=== PATIENT | male | born 1945 | race Caucasian/White ===

== ENCOUNTER 2016-12-01 17:13 | Emergency (ER) | payer MEDICARE ==
[2016-12-01 17:13] VITALS: BMI 21.4
[2016-12-01 17:17] VITALS: BP 126/57; PULSE 80; TEMP 98.3; O2SAT 98
[2016-12-01] MEDS ORDERED: Albuterol-Ipratrop 3 mg / 0.5 (3 ml) UD IH STA ×2 (17:34→17:35)
[2016-12-01] MEDS ORDERED: Albuterol-Ipratrop 3 mg / 0.5 (3 ml) UD INH STA (17:34)
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
[2016-12-01] MEDS ORDERED: Albuterol-Ipratrop 3 mg / 0.5 (3 ml) UD ONE (17:42)
[2016-12-01 18:11] VITALS: RESP 18
[2016-12-01 18:13] LABS: BASO % 0.8 % (0.0-2.0); EOS # 0.2 K/uL (0.0-0.7); EOS % 5.4 % (0.0-4.0); HEMOGLOBIN 12.6 g/dL (12.0-18.0); LYMPH # 1.6 K/uL (1.0-4.3); LYMPH % 35.6 % (20.0-40.0); MEAN CORPUSCULAR HEMOGLOBIN 30.2 pg (27.0-31.0); MEAN CORPUSCULAR HGB CONC 33.2 g/dL (33.0-37.0); MEAN PLATELET VOLUME 8.4 fl (7.2-11.7); MONO # 0.5 K/uL (0.0-0.8); MONO % 12.1 % (0.0-10.0); NEUT # 2.1 K/uL (1.8-7.0); NEUT % 46.1 % (50.0-75.0); RBC 4.18 Mil/uL (4.40-5.90); RED CELL DISTRIBUTION WIDTH 13.7 % (11.5-14.5); WHITE BLOOD COUNT 4.6 K/uL (4.8-10.8)
[2016-12-01 18:19] LABS: MEAN CELL VOLUME 90.9 fl (80.0-94.0)
[2016-12-01 18:27] LABS: ALB/GLOB RATIO 1.2 (1.0-2.1); ALBUMIN 3.9 g/dL (3.5-5.0); ALT/SGPT 47 U/L (21-72); AST/SGOT 33 U/L (17-59); BLOOD UREA NITROGEN 27 mg/dl (9-20); CALCIUM 8.9 mg/dL (8.4-10.2); GFR AFRICAN-AMERICAN 56; GFR NON-AFRICAN AMERICAN 46
[2016-12-01 18:39] LABS: B-TYPE NATRIURETIC PEPTIDE 146 pg/ml (0-900)
--- NOTE | 2016-12-01 20:13 | RAD ---
HISTORY: dyspnea COMPARISON: No prior. FINDINGS: LUNGS: No active pulmonary disease. PLEURA: No significant pleural effusion identified, no pneumothorax apparent. CARDIOVASCULAR: Normal. OSSEOUS STRUCTURES: No significant abnormalities. VISUALIZED UPPER ABDOMEN: Normal. OTHER FINDINGS: None. IMPRESSION: No active disease.
--- NOTE | 2016-12-02 09:44 | CARD ---
APPROVED REPORT EKG Measurement Heart [id number] CT 132P86 [id number] <Conclusion> Sinus rhythm with marked sinus arrhythmia Left axis deviation Right bundle branch block
== END 2016-12-01 20:23 | disposition home or self-care (01) ==
LOC: H.ER 17:13
DX: J45.909 Unspecified asthma, uncomplicated (principal)
CPT/HCPCS: 71010; 80053; 83880; 84484; 85025; 93005; 94640; 96374; 99284; J2930; J7040

== ENCOUNTER 2016-12-09 09:21 | Observation (INO) | payer MEDICARE ==
[2016-12-09 09:33] VITALS: BMI 20.7
[2016-12-09 09:48] VITALS: TEMP 97.9
[2016-12-09 10:08] LABS: BASO % 0.8 % (0.0-2.0); EOS # 0.3 K/uL (0.0-0.7); EOS % 6.5 % (0.0-4.0); HEMATOCRIT 35.9 % (35.0-51.0); LYMPH # 0.9 K/uL (1.0-4.3); LYMPH % 17.4 % (20.0-40.0); MEAN CELL VOLUME 90.8 fl (80.0-94.0); MEAN CORPUSCULAR HGB CONC 33.1 g/dL (33.0-37.0); MEAN PLATELET VOLUME 8.7 fl (7.2-11.7); MONO # 0.6 K/uL (0.0-0.8); MONO % 12.2 % (0.0-10.0); NEUT # 3.3 K/uL (1.8-7.0); NEUT % 63.1 % (50.0-75.0); RED CELL DISTRIBUTION WIDTH 13.9 % (11.5-14.5); WHITE BLOOD COUNT 5.2 K/uL (4.8-10.8)
[2016-12-09 10:13] LABS: ALB/GLOB RATIO 1.2 (1.0-2.1); ALCOHOL SERUM < 10 mg/dl (0-10); ALKALINE PHOSPHATASE 39 U/L (38-126); ALT/SGPT 38 U/L (21-72); AST/SGOT 26 U/L (17-59); BILIRUBIN,TOTAL 0.6 mg/dl (0.2-1.3); BLOOD UREA NITROGEN 22 mg/dl (9-20); CALCIUM 8.7 mg/dL (8.4-10.2); CARBON DIOXIDE 26 mmol/L (22-30); CHLORIDE 108 mmol/L (98-107); GFR AFRICAN-AMERICAN > 60; GLUCOSE,RANDOM 103 mg/dL (75-110); POTASSIUM 4.1 MMOL/L (3.6-5.0); SODIUM 141 mmol/l (132-148); TOTAL PROTEIN 6.9 G/DL (6.3-8.2)
--- NOTE | 2016-12-09 10:28 | ED PDOC ---
HPI: General Adult Time Seen by Provider: 12/09/16 09:29 Chief Complaint (Nursing): Dizziness/Lightheaded Chief Complaint (Provider): weakness History Per: Patient, EMS History/Exam Limitations: clinical condition, intoxication Onset/Duration Of Symptoms: Unknown Current Symptoms Are (Timing): Still Present Severity: Moderate Recently: Treated By A Physician Additional Complaint(s): 71yo male presents w EMS, found leaning against a fence weak/ somnolent. In ED admits to "snorting" heroin. Somnolent but arousable, history limited due to somnolence. No reports trauma. Patient denies headache or fall. Past Medical History Reviewed: Historical Data, Nursing Documentation, Vital Signs Vital Signs: Last Vital Signs Temp 97.9 F 12/09/16 09:43 Pulse 60 12/09/16 17:30 Resp 16 12/09/16 17:30 BP 147/80 12/09/16 17:30 Pulse Ox 100 12/09/16 17:30 - Medical History PMH: Anemia, Asthma, COPD, Emphysema, HIV, Pneumonia, Sexually Transmitted Disease Denies: Chronic Kidney Disease - Family History Family History: States: Unknown Family Hx - Living Arrangements Living Arrangements: With Family - Social History Current smoker - smoking cessation education provided: Yes Drugs: Opiates - Home Medications Home Medications: Ambulatory Orders Medication Instructions Recorded Abacavir Sulfate/Lamivudine 1 tab PO QPM 06/16/15 [Epzicom] Albuterol Sulfate [Proair Hfa] 2 puff IH Q6H PRN 06/16/15 Budesonide/Formoterol Fumarate 2 puff IH Q12H 06/16/15 [Symbicort 160-4.5 Mcg Inhaler] Raltegravir Potassium [Isentress] 400 mg PO BID 06/16/15 Aspirin 325 mg PO 1500 #0 tab 11/10/15 Atenolol 25 mg PO DAILY #30 tablet 11/10/15 Pravastatin Sodium [Pravachol] 40 mg PO 1500 #0 tab 11/10/15 Albuterol Sulfate [Proair Hfa] 0.09 mg IH Q6H PRN #2 inh 12/01/16 predniSONE [predniSONE Tab] 20 mg PO BID 5 Days 12/01/16 - Allergies Allergies/Adverse Reactions: Allergies Allergy/AdvReac Type Severity Reaction Status Date / Time No Known Allergies Allergy Verified 12/09/16 09:29 Review of Systems Review Of Systems: ROS cannot be obtained secondary to pt's inabilty to answer questions. Physical Exam - Reviewed Nursing Documentation Reviewed: Yes Vital Signs Reviewed: Yes - Physical Exam Appears: Positive for: Non-toxic, No Acute Distress Head Exam: Positive for: ATRAUMATIC, NORMAL INSPECTION, NORMOCEPHALIC Skin: Positive for: Normal Color, Warm, DRY Eye Exam: Positive for: PERRL, Other (pupils 1mm b/l). Negative for: Periorbital swelling ENT: Positive for: Normal ENT Inspection Neck: Positive for: Normal, Painless ROM Cardiovascular/Chest: Positive for: Regular Rate, Rhythm Respiratory: Positive for: Normal Breath Sounds, Other (normal resp effort) Pulses-Radial (L): 3+/4+ Pulses-Radial (R): 3+/4+ Gastrointestinal/Abdominal: Positive for: Bowel Sounds, Soft. Negative for: Tenderness Back: Positive for: Normal Inspection Extremity: Positive for: Normal ROM Neurologic/Psych: Positive for: Alert, integrity analyst II-XII (intact), Oriented. Negative for: Motor/Sensory Deficits - Laboratory Results Result Diagrams: 12/09/16 09:55 12/09/16 09:55 - ECG ECG: Positive for: Interpreted By Ut ECG Rhythm: Positive for: Normal ST Segment, Sinus Rhythm, Nonspecific Changes Interpretation Of ECG: RBBB Rate: 85 O2 Sat by Pulse Oximetry: 92 Pulse Ox Interpretation: Normal - Radiology X-Ray: Interpreted by Ut X-Ray Interpretation: No Acute Disease Medical Decision Making Medical Decision Making: placed on teletypesetter monitor, maintaining resp drive, hold narcan for now. ED OBSERVATION Date of observation admission: 12/09/16 Time of observation admission: 11:30 - Observation admission statement Patient is being placed in observation because:: heroin overdose and need for respiratory monitoring - Goals of Observation Goals of observation are:: wakefullness, respiratory stability - Progress Note Progress Note: patient placed on cardiac and SPO2 monitoring, gradually regained wakefullness without need for narcan as maintained respiratory drive. After ~5hrs monitoring, awake, alert, tolerated full PO diet. Ambulating. States uses heroin daily. Refused detox offering. DC from ED. Disposition - Clinical Impression Clinical Impression: Heroin abuse, Opiate overdose - Patient ED Disposition Is Patient to be Admitted: No - Disposition Disposition: Routine/Home Disposition Time: 11:30 Condition: STABLE
--- NOTE | 2016-12-09 16:04 | RAD ---
HISTORY: SOB COMPARISON: Comparison chest dated 12/01/2016 FINDINGS: LUNGS: Poor inspiration with low lung volumes, crowded bronchovascular markings and mild bibasilar atelectasis right greater than left. PLEURA: No significant pleural effusion identified, no pneumothorax apparent. CARDIOVASCULAR: Heart size is within range of normal. . Calcification of the aortic knob. The aorta is also slightly ectatic and uncoiled. OSSEOUS STRUCTURES: Minor degenerative changes left shoulder girdle. Minor multilevel degenerative spondylosis of the thoracic spine VISUALIZED UPPER ABDOMEN: Normal. OTHER FINDINGS: None. IMPRESSION: Poor inspiration with low lung volumes, crowded bronchovascular markings and mild bibasilar atelectasis right greater than left.
[2016-12-09 17:30] VITALS: BP 147/80; RESP 16
[2016-12-12 12:08] VITALS: PULSE 85; O2SAT 92
== END 2016-12-09 19:24 | disposition home or self-care (01) ==
LOC: H.ER 09:21 → H.EROBSV 11:33
PROVIDERS: ADMIT Emergency Medicine; ATTEND Emergency Medicine
DX: F11.129 Opioid abuse with intoxication, unspecified (principal); F17.200 Nicotine dependence, unspecified, uncomplicated; J43.9 Emphysema, unspecified; J45.909 Unspecified asthma, uncomplicated; Z21 Asymptomatic human immunodeficiency virus [HIV] infection status
CPT/HCPCS: 71010; 80053; 82948; 84484; 85025; 99283; G0378; G0480

== ENCOUNTER 2017-05-09 20:36 | Inpatient (IN) | payer MEDICARE ==
[2017-05-09 20:36] VITALS: BMI 20.7
--- NOTE | 2017-05-09 21:25 | ED PDOC ---
HPI: CCC, URI, Sore Throat Time Seen by Provider: 05/09/17 21:02 Chief Complaint (Nursing): Shortness Of Breath Chief Complaint (Provider): cough History Per: Patient History/Exam Limitations: intoxication (possible heroin) Onset/Duration Of Symptoms: Days (2 weeks) Associated Symptoms: Chills, Cough, Sputum, Sinus Drainage, Myalgias Additional Complaint(s): Reports cough for 2 weeks, on antibiotics at onset, with no relief Today with weakness generalized and shortness of breath H/o HIV off antivirals for 2 months due to loss of meds from [facility] in [facility] Past Medical History Reviewed: Historical Data, Nursing Documentation, Vital Signs Vital Signs: Last Vital Signs Temp 99.3 F 05/09/17 20:55 Pulse 83 05/09/17 20:55 Resp 20 05/09/17 20:55 BP 163/87 H 05/09/17 20:55 Pulse Ox 98 05/09/17 20:55 - Medical History PMH: Anemia, Asthma, COPD, Emphysema, HIV, Pneumonia, Sexually Transmitted Disease Denies: Chronic Kidney Disease - Family History Family History: States: Unknown Family Hx - Social History Current smoker - smoking cessation education provided: No Alcohol: None Drugs: Opiates - Home Medications Home Medications: Ambulatory Orders Medication Instructions Recorded Abacavir Sulfate/Lamivudine 1 tab PO QPM 06/16/15 [Epzicom] Albuterol Sulfate [Proair Hfa] 2 puff IH Q6H PRN 06/16/15 Budesonide/Formoterol Fumarate 2 puff IH Q12H 06/16/15 [Symbicort 160-4.5 Mcg Inhaler] Raltegravir Potassium [Isentress] 400 mg PO BID 06/16/15 Aspirin 325 mg PO 1500 #0 tab 11/10/15 Atenolol 25 mg PO DAILY #30 tablet 11/10/15 Pravastatin Sodium [Pravachol] 40 mg PO 1500 #0 tab 11/10/15 Albuterol Sulfate [Proair Hfa] 0.09 mg IH Q6H PRN #2 inh 12/01/16 predniSONE [predniSONE Tab] 20 mg PO BID 5 Days tab 12/01/16 - Allergies Allergies/Adverse Reactions: Allergies Allergy/AdvReac Type Severity Reaction Status Date / Time No Known Allergies Allergy Verified 12/09/16 09:29 Review of Systems ROS Statement: Except As Marked, All Systems Reviewed And Found Negative (and as per HPI, however pt lethargic possibly due to heroin) Constitutional: Positive for: Weakness, Malaise. Negative for: Fever, Chills ENT: Positive for: Nose Discharge Cardiovascular: Positive for: Light Headedness Respiratory: Positive for: Cough, Shortness of Breath, SOB with Exertion, Pleuritic Pain Physical Exam - Reviewed Nursing Documentation Reviewed: Yes Vital Signs Reviewed: Yes - Physical Exam Appears: Positive for: No Acute Distress Head Exam: Positive for: ATRAUMATIC, NORMOCEPHALIC Skin: Positive for: Warm, Dry Eye Exam: Positive for: PERRL, Other (small pupils bilaterally) ENT: Negative for: Pharyngeal Erythema, Tonsillar Exudate Neck: Positive for: Painless ROM, Supple Cardiovascular/Chest: Positive for: Regular Rate, Rhythm, Chest Non Tender. Negative for: Murmur Respiratory: Positive for: Rhonchi. Negative for: Accessory Muscle Use, Respiratory Distress Gastrointestinal/Abdominal: Positive for: Soft. Negative for: Tenderness Back: Positive for: Normal Inspection. Negative for: Decreased ROM Extremity: Positive for: Normal ROM. Negative for: Deformity Lymphatic: Negative for: Adenopathy Neurologic/Psych: Positive for: Oriented (x3), Other (sleepy, slightly garbled speech). Negative for: Motor/Sensory Deficits - ECG O2 Sat by Pulse Oximetry: 98 Disposition - Disposition
[2017-05-09 21:43] LABS: VENOUS BLOOD GAS BASE EXCESS 5.3 mmol/L (0.0-2.0); VENOUS BLOOD GAS PCO2 69 mmHg (40-60); VENOUS BLOOD GAS PO2 16 mm/Hg (30-55)
[2017-05-09 21:52] LABS: ALB/GLOB RATIO 1.1 (1.0-2.1); ALBUMIN 3.9 g/dL (3.5-5.0); ALT/SGPT 39 U/L (21-72); AST/SGOT 32 U/L (17-59); BLOOD UREA NITROGEN 23 mg/dl (9-20); GFR AFRICAN-AMERICAN > 60; GFR NON-AFRICAN AMERICAN > 60; MAGNESIUM 1.8 MG/DL (1.6-2.3)
[2017-05-09 21:55] LABS: CALCIUM 8.7 mg/dL (8.4-10.2)
[2017-05-09 22:00] LABS: B-TYPE NATRIURETIC PEPTIDE 111 pg/ml (0-900)
[2017-05-09 22:02] LABS: BASO % 0.3 % (0.0-2.0); EOS % 0.2 % (0.0-4.0); HEMOGLOBIN 12.5 g/dL (12.0-18.0); LYMPH # 0.9 K/uL (1.0-4.3); LYMPH % 14.1 % (20.0-40.0); MEAN CELL VOLUME 96.4 fl (80.0-94.0); MEAN CORPUSCULAR HEMOGLOBIN 31.4 pg (27.0-31.0); MEAN CORPUSCULAR HGB CONC 32.5 g/dL (33.0-37.0); MEAN PLATELET VOLUME 8.6 fl (7.2-11.7); MONO # 0.4 K/uL (0.0-0.8); MONO % 6.8 % (0.0-10.0); NEUT # 4.8 K/uL (1.8-7.0); NEUT % 78.6 % (50.0-75.0); RBC 3.99 Mil/uL (4.40-5.90); RED CELL DISTRIBUTION WIDTH 14.3 % (11.5-14.5); WHITE BLOOD COUNT 6.1 K/uL (4.8-10.8)
[2017-05-09 22:25] LABS: PARTIAL THROMBOPLASTIN TIME 29.7 Seconds (25.6-37.1); PROTHROMBIN TIME 11.1 Seconds (9.8-13.1)
[2017-05-09] MEDS ORDERED: Albuterol-Ipratrop 3 mg / 0.5 (3 ml) UD INH STA (23:25)
[2017-05-10] MEDS ORDERED: Albuterol-Ipratrop 3 mg / 0.5 (3 ml) UD ONE ×2 (00:35→01:55)
[2017-05-10 01:15] LABS: BARBITURATES, UR NEGATIVE (NEGATIVE); BENZODIAZEPINES, UR NEGATIVE (NEGATIVE); PHENCYCLIDINE, UR NEGATIVE (NEGATIVE)
[2017-05-10 01:23] LABS: OPIATES, UR POSITIVE (NEGATIVE)
[2017-05-10] MEDS ORDERED: Pneumococcal 23-Valent Vaccine IM ONE (06:39)
[2017-05-10] MEDS: MethylPREDNISolone 40 mg Vial IVP SCH ×2 (09:02→16:52)
[2017-05-10] MEDS: levoFLOXacin 500 mg in D5W 500 MG/100 ML BAG IVPB SCH (09:04)
--- NOTE | 2017-05-10 11:39 | RAD ---
HISTORY: sob COMPARISON: Chest radiograph dated 12/09/2016. FINDINGS: LUNGS: Hyperinflated. Right basilar scarring. No active pulmonary disease. PLEURA: Flattened diaphragms. No significant pleural effusion identified, no pneumothorax apparent. CARDIOVASCULAR: Atherosclerotic aortic calcifications. Cardiomediastinal silhouette within normal limits. OSSEOUS STRUCTURES: Unchanged. VISUALIZED UPPER ABDOMEN: Normal. OTHER FINDINGS: None. IMPRESSION: No active disease.
[2017-05-10] MEDS: Albuterol-Ipratrop 3 mg / 0.5 (3 ml) UD INH PRN ×2 (17:03→19:14)
--- NOTE | 2017-05-10 17:57 | CARD ---
APPROVED REPORT EKG Measurement Heart [id number] NC 118P86 [id number] <Conclusion> Normal sinus rhythm Right bundle branch block Left anterior fascicular block Bifascicular block Abnormal ECG
--- NOTE | 2017-05-10 19:03 | CP.PCM.HP ---
History of Present Illness - History of Present Illness History of Present Illness: CC; Shortness of Breath. History of {Present Illness: A 71yoM with H/O CAD, COPD and HIV presented with Progressively worsening SOB which was not relieved Inhalers and Duonebs in the ER. +Dry cough. Denies chest pain, fever chills. PAtient was also given solumedrol 125mg IV in the ER. Present on Admission - Present on Admission Any Indicators Present on Admission: No History of DVT/PE: No History of Uncontrolled Diabetes: No Urinary Catheter: No Decubitus Ulcer Present: No Review of Systems - Review of Systems All systems: reviewed and no additional remarkable complaints except - Respiratory Respiratory: As Per HPI Past Patient History - Infectious Disease Hx of Infectious Diseases: None - Past Medical History & Family History Past Medical History?: Yes Past Family History: Reviewed and not pertinent - Past Social History Smoking Status: Never Smoked Alcohol: None Drugs: Denies - CARDIAC Hx Cardiac Disorders: Yes (HTN, High cholesterol) - PULMONARY Hx Respiratory Disorders: Yes (COPD, Asthma) - NEUROLOGICAL Hx Neurological Disorder: No - HEENT Hx HEENT Problems: No - RENAL Hx Chronic Kidney Disease: No - ENDOCRINE/METABOLIC Hx Endocrine Disorders: No - HEMATOLOGICAL/ONCOLOGICAL Hx Human Immunodeficiency Virus (HIV): Yes - INTEGUMENTARY Hx Dermatological Problems: No - MUSCULOSKELETAL/RHEUMATOLOGICAL Hx Falls: No - GASTROINTESTINAL Hx Gastrointestinal Disorders: No - GENITOURINARY/GYNECOLOGICAL Hx Genitourinary Disorders: No - PSYCHIATRIC Hx Substance Use: Yes (Admits to heroin use, last 05/09/17) - SURGICAL HISTORY Hx Surgeries: No - ANESTHESIA Hx Anesthesia: No Meds Allergies/Adverse Reactions: Allergies Allergy/AdvReac Type Severity Reaction Status Date / Time No Known Allergies Allergy Verified 12/09/16 09:29 Physical Exam - Constitutional Appears: Non-toxic, No Acute Distress - Head Exam Head Exam: ATRAUMATIC, NORMAL INSPECTION, NORMOCEPHALIC - Eye Exam Eye Exam: EOMI, Normal appearance, PERRL Pupil Exam: NORMAL ACCOMODATION, PERRL - ENT Exam ENT Exam: Mucous Membranes Moist, Normal Exam - Neck Exam Neck exam: Positive for: Full Rom, Normal Inspection - Respiratory Exam Respiratory Exam: Decreased Breath Sounds, Prolonged Expiratory Phase, Wheezes. absent: Rales - Cardiovascular Exam Cardiovascular Exam: REGULAR RHYTHM, +S1, +S2 - GI/Abdominal Exam GI & Abdominal Exam: Normal Bowel Sounds, Soft. absent: Tenderness - Extremities Exam Extremities exam: Positive for: full ROM, normal inspection. Negative for: calf tenderness - Back Exam Back exam: NORMAL INSPECTION - Neurological Exam Neurological exam: Alert, CN II-XII Intact, Normal Gait, Oriented x3, Reflexes Normal - Psychiatric Exam Psychiatric exam: Normal Affect, Normal Mood - Skin Skin Exam: Dry, Intact, Normal Color, Warm Results - Vital Signs Recent Vital Signs: Last Vital Signs Temp 98.6 F 05/10/17 16:05 Pulse 75 05/10/17 16:05 Resp 20 05/10/17 16:05 BP 109/51 L 05/10/17 16:05 Pulse Ox 97 05/10/17 16:05 - Labs Result Diagrams: 05/09/17 21:25 05/09/17 21:25 Labs: Laboratory Results - last 24 hr 05/09/17 05/09/17 05/09/17 21:25 21:25 21:25 WBC 6.1 RBC 3.99 L Hgb 12.5 Hct 38.5 MCV 96.4 H D MCH 31.4 H MCHC 32.5 L RDW 14.3 Plt Count 212 MPV 8.6 Neut % (Auto) 78.6 H Lymph % (Auto) 14.1 L Sully % (Auto) 6.8 Eos % (Auto) 0.2 Baso % (Auto) 0.3 Neut # 4.8 Lymph # 0.9 L Sully # 0.4 Eos # 0.0 Baso # 0.0 PT INR APTT pO2 VBG pH VBG pCO2 VBG HCO3 VBG Total CO2 VBG O2 Sat (Calc) VBG Base Excess VBG Potassium Glucose Lactate FiO2 Crit Value Called To Crit Value Called By Crit Value Read Back Blood Gas Notified Time Sodium 138 Potassium 3.8 Chloride 96 L Carbon Dioxide 32 H Anion Gap 14 BUN 23 H Creatinine 1.1 Est GFR ( Amer) > 60 Est GFR (Non-Af Amer) > 60 Random Glucose 74 L Calcium 8.7 Phosphorus 3.3 Magnesium 1.8 Total Bilirubin 0.7 AST 32 ALT 39 Alkaline Phosphatase 42 Troponin I 0.0420 NT-Pro-B Natriuret Pep 111 Total Protein 7.5 Albumin 3.9 Globulin 3.6 Albumin/Globulin Ratio 1.1 Venous Blood Potassium Urine Opiates Screen Urine Methadone Screen Ur Barbiturates Screen Ur Phencyclidine Scrn Ur Amphetamines Screen U Benzodiazepines Scrn U Oth Cocaine Metabols U Cannabinoids Screen Alcohol, Quantitative < 10 Influenza Typ A,B (EIA) Negative for flu a/b 05/09/17 05/09/17 05/10/17 21:35 22:10 00:16 WBC RBC Hgb Hct MCV MCH MCHC RDW Plt Count MPV Neut % (Auto) Lymph % (Auto) Sully % (Auto) Eos % (Auto) Baso % (Auto) Neut # Lymph # Sully # Eos # Baso # PT 11.1 INR 1.0 APTT 29.7 pO2 16 L VBG pH 7.30 L VBG pCO2 69 H* VBG HCO3 26.9 VBG Total CO2 36.1 H VBG O2 Sat (Calc) 24.8 L VBG Base Excess 5.3 H VBG Potassium 3.9 Glucose 70 L Lactate 1.5 FiO2 21.0 Crit Value Called To Marlee mccurdy Crit Value Called By 23 Crit Value Read Back Y Blood Gas Notified Time 2140 Sodium 138.0 Potassium Chloride 96.0 L Carbon Dioxide Anion Gap BUN Creatinine Est GFR ( Amer) Est GFR (Non-Af Amer) Random Glucose Calcium Phosphorus Magnesium Total Bilirubin AST ALT Alkaline Phosphatase Troponin I NT-Pro-B Natriuret Pep Total Protein Albumin Globulin Albumin/Globulin Ratio Venous Blood Potassium 3.9 Urine Opiates Screen Positive H Urine Methadone Screen Negative Ur Barbiturates Screen Negative Ur Phencyclidine Scrn Negative Ur Amphetamines Screen Negative U Benzodiazepines Scrn Negative U Oth Cocaine Metabols Negative U Cannabinoids Screen Negative Alcohol, Quantitative Influenza Typ A,B (EIA) - EKG Data EKG comments: Bifascicular Block with RBBB. - Imaging and Cardiology Chest x-ray Status: Report reviewed by me Additional comment: No Active Disease Assessment & Plan (1) COPD exacerbation Assessment and Plan: O2 Via NC Solumedrol 40mg IV q8hrs Duoneb Q4hrs RTC Peakflow Status: Chronic Priority: High (2) CAD (coronary atherosclerotic disease) Status: Acute Priority: Medium (3) Human immunodeficiency virus (HIV) disease Status: Chronic Priority: Medium
[2017-05-11] MEDS: MethylPREDNISolone 40 mg Vial IVP SCH ×2 (00:49→09:03)
[2017-05-11 07:55] VITALS: BP 162/86; PULSE 82; RESP 20; TEMP 98.7; O2SAT 96
[2017-05-11] MEDS: levoFLOXacin 500 mg in D5W 500 MG/100 ML BAG IVPB SCH (09:03)
--- NOTE | 2017-05-12 00:25 | CP.PCM.DIS ---
Provider - Provider Date of Admission: 05/10/17 11:49 Attending physician: Orly Eller MD Time Spent in preparation of Discharge (in minutes): 25 Diagnosis - Discharge Diagnosis (1) CAD (coronary atherosclerotic disease) Status: Acute Priority: Medium (2) COPD exacerbation Status: Chronic Priority: Low (3) Human immunodeficiency virus (HIV) disease Status: Chronic Priority: Medium Hospital Course - Lab Results Lab Results: Micro Results 05/09/17 21:25 Blood Blood Culture - Preliminary NO GROWTH AFTER 48 HOURS 05/09/17 21:25 Blood Blood Culture - Preliminary NO GROWTH AFTER 48 HOURS Most Recent Lab Values WBC 6.1 K/uL (4.8-10.8) 05/09/17 21:25 RBC 3.99 Mil/uL (4.40-5.90) L 05/09/17 21:25 Hgb 12.5 g/dL (12.0-18.0) 05/09/17 21:25 Hct 38.5 % (35.0-51.0) 05/09/17 21:25 MCV 96.4 fl (80.0-94.0) H D 05/09/17 21:25 MCH 31.4 pg (27.0-31.0) H 05/09/17 21:25 MCHC 32.5 g/dL (33.0-37.0) L 05/09/17 21:25 RDW 14.3 % (11.5-14.5) 05/09/17 21:25 Plt Count 212 K/uL (130-400) 05/09/17 21:25 MPV 8.6 fl (7.2-11.7) 05/09/17 21:25 Neut % (Auto) 78.6 % (50.0-75.0) H 05/09/17 21:25 Lymph % (Auto) 14.1 % (20.0-40.0) L 05/09/17 21:25 [place]erry % (Auto) 6.8 % (0.0-10.0) 05/09/17 21:25 Eos % (Auto) 0.2 % (0.0-4.0) 05/09/17 21:25 Baso % (Auto) 0.3 % (0.0-2.0) 05/09/17 21:25 Neut # 4.8 K/uL (1.8-7.0) 05/09/17 21:25 Lymph # 0.9 K/uL (1.0-4.3) L 05/09/17 21:25 Ferry # 0.4 K/uL (0.0-0.8) 05/09/17 21:25 Eos # 0.0 K/uL (0.0-0.7) 05/09/17 21:25 Baso # 0.0 K/uL (0.0-0.2) 05/09/17 21:25 PT 11.1 Seconds (9.8-13.1) 05/09/17 22:10 INR 1.0 (0.9-1.2) 05/09/17 22:10 APTT 38.6 Seconds (25.6-37.1) H D 05/11/17 05:30 pO2 16 mm/Hg (30-55) L 05/09/17 21:35 VBG pH 7.30 (7.32-7.43) L 05/09/17 21:35 VBG pCO2 69 mmHg (40-60) H* 05/09/17 21:35 VBG HCO3 26.9 mmol/L 05/09/17 21:35 VBG Total CO2 36.1 mmol/L (22-28) H 05/09/17 21:35 VBG O2 Sat (Calc) 24.8 % (40-65) L 05/09/17 21:35 VBG Base Excess 5.3 mmol/L (0.0-2.0) H 05/09/17 21:35 VBG Potassium 3.9 mmol/L (3.6-5.2) 05/09/17 21:35 Sodium 138.0 mmol/L (132-148) 05/09/17 21:35 Chloride 96.0 mmol/L (98-107) L 05/09/17 21:35 Glucose 70 mg/dL (75-110) L 05/09/17 21:35 Lactate 1.5 mmol/L (0.7-2.1) 05/09/17 21:35 FiO2 21.0 % 05/09/17 21:35 Crit Value Called To Marlee mccurdy 05/09/17 21:35 Crit Value Called By 23 05/09/17 21:35 Crit Value Read Back Y 05/09/17 21:35 Blood Gas Notified Time 213905/09/17 21:35 Sodium 138 mmol/l (132-148) 05/09/17 21:25 Potassium 3.8 MMOL/L (3.6-5.0) 05/09/17 21:25 Chloride 96 mmol/L (98-107) L 05/09/17 21:25 Carbon Dioxide 32 mmol/L (22-30) H 05/09/17 21:25 Anion Gap 14 (10-20) 05/09/17 21:25 BUN 23 mg/dl (9-20) H 05/09/17 21:25 Creatinine 1.1 mg/dl (0.8-1.5) 05/09/17 21:25 Est GFR ( Amer) > 60 05/09/17 21:25 Est GFR (Non-Af Amer) > 60 05/09/17 21:25 Random Glucose 74 mg/dL (75-110) L 05/09/17 21:25 Calcium 8.7 mg/dL (8.4-10.2) 05/09/17 21:25 Phosphorus 3.3 mg/dl (2.5-4.5) 05/09/17 21:25 Magnesium 1.8 MG/DL (1.6-2.3) 05/09/17 21:25 Total Bilirubin 0.7 mg/dl (0.2-1.3) 05/09/17 21:25 AST 32 U/L (17-59) 05/09/17 21:25 ALT 39 U/L (21-72) 05/09/17 21:25 Alkaline Phosphatase 42 U/L (38-126) 05/09/17 21:25 Troponin I 0.0420 ng/mL (0.00-0.120) 05/09/17 21:25 NT-Pro-B Natriuret Pep 111 pg/ml (0-900) 05/09/17 21:25 Total Protein 7.5 G/DL (6.3-8.2) 05/09/17 21:25 Albumin 3.9 g/dL (3.5-5.0) 05/09/17 21:25 Globulin 3.6 gm/dL (2.2-3.9) 05/09/17 21:25 Albumin/Globulin Ratio 1.1 (1.0-2.1) 05/09/17 21:25 Venous Blood Potassium 3.9 mmol/L (3.6-5.2) 05/09/17 21:35 Urine Opiates Screen Positive (NEGATIVE) H 05/10/17 00:16 Urine Methadone Screen Negative (NEGATIVE) 05/10/17 00:16 Ur Barbiturates Screen Negative (NEGATIVE) 05/10/17 00:16 Ur Phencyclidine Scrn Negative (NEGATIVE) 05/10/17 00:16 Ur Amphetamines Screen Negative (NEGATIVE) 05/10/17 00:16 U Benzodiazepines Scrn Negative (NEGATIVE) 05/10/17 00:16 U Oth Cocaine Metabols Negative (NEGATIVE) 05/10/17 00:16 U Cannabinoids Screen Negative (NEGATIVE) 05/10/17 00:16 Alcohol, Quantitative < 10 mg/dl (0-10) 05/09/17 21:25 Influenza Typ A,B (EIA) Negative for flu a/b (NEGATIVE) 05/09/17 21:25 Discharge Exam - Head Exam Head Exam: ATRAUMATIC, NORMOCEPHALIC Discharge Plan - Follow Up Plan Condition: GOOD Disposition: AGAINST MEDICAL ADVICE
--- NOTE | 2017-05-13 07:38 | PQF GENQUE ---
This form is a permanent part of the medical record 05/13/17 Dr. Eller, Please clarify the diagnosis of HIV utilizing the following coding terminology : "Asymptomatic HIV Infection /HIV positive only" : used when no HIV infection symptoms or conditions are present..... versus "Symptomatic HIV Disease /AIDS" : this code is used for pts. who have had a prior diagnosis of an HIV- related illness or CD4 count <200 in the past; HAART OR ...Unable to determine Patient is admitted with a COPD exacerbation. Documentation of HIV. Clarification of your documentation is requested to better reflect the severity of illness and intensity of treatment of your patient. Indicators present [] Specify: [] [] Specify: [] [] Specify: [] [] Specify: [] Location in the medical record that reflects the above clinical findings: [] Treatment Provided: [] PHYSICIAN'S RESPONSE Based on your medical judgment of the clinical indicators outlined above please clarify the following: [X] Practitioner response: Asymptomatic HIV Infection [] If unable to determine, please check the box, sign and date. Present On Admission (POA) Indicator: [x] Present at the time of admission [] Not present at the time of admission [] Clinically Undetermined In responding to this query, please exercise your independent professional judgment. The fact that a question is asked does not imply that any particular answer is desired or expected. Thank you for your clarification on this documentation. If you have any questions please call:ext [phone] * Thank you, Chacha Cummings RN [facility]
== END 2017-05-11 10:35 | disposition left against medical advice (07) | DRG 192 ==
LOC: H.ER 20:36 → H.ERHOLD 23:34 → H.MEDSURG1 05-10 03:34 → OBSVTOIN 05-10 11:49
PROVIDERS: ADMIT Internal Medicine; ATTEND Internal Medicine
PROC: 3E0F73Z Introduction of Anti-inflammatory into Respiratory Tract, Via Natural or Artificial Opening (ICD-10-PCS; principal; 2017-05-10)
PROC: 3E0234Z Introduction of Serum, Toxoid and Vaccine into Muscle, Percutaneous Approach (ICD-10-PCS; 2017-05-10)
DX: J44.1 Chronic obstructive pulmonary disease with (acute) exacerbation (principal); D64.9 Anemia, unspecified; I25.10 Atherosclerotic heart disease of native coronary artery without angina pectoris; Z21 Asymptomatic human immunodeficiency virus [HIV] infection status; I10 Essential (primary) hypertension; E78.00 Pure hypercholesterolemia, unspecified; F11.90 Opioid use, unspecified, uncomplicated; Z23 Encounter for immunization; Z79.51 Long term (current) use of inhaled steroids; Z79.82 Long term (current) use of aspirin; Z59.0 Homelessness

== ENCOUNTER 2018-01-24 15:20 | Observation (INO) | payer MEDICARE ==
[2018-01-24 15:21] VITALS: BMI 20.7
[2018-01-24] MEDS ORDERED: Sodium Chloride 0.9% 1,000 ML IV STA ×2 (15:37→17:51)
--- NOTE | 2018-01-24 15:50 | ED PDOC ---
Syncope/Near Syncope/Dizziness Time Seen by Provider: 01/24/18 15:48 Chief Complaint (Nursing): Weakness/Neurological Deficit Chief Complaint (Provider): LOC History Per: Patient (72 Y/O MALE HIV H/O HEROIN ABUSE WAS FOUND UNRESPONSIVE BY [facility] TODAY. PATIENT ADMITS USE OF HEROIN TO MEDICS. STATES HE IS UNSURE WHY HE WAS ON FLOOR. DENIES ANY CHEST PAIN/SOB/ABD PAIN/FEVER.) Past Medical History Reviewed: Historical Data, Nursing Documentation, Vital Signs Vital Signs: Last Vital Signs Temp 98.0 F 01/24/18 15:23 Pulse 107 H 01/24/18 15:23 Resp 16 01/24/18 15:23 BP 111/74 01/24/18 15:23 Pulse Ox 99 01/24/18 15:23 - Medical History PMH: Anemia, Asthma, COPD, Emphysema, HIV, Pneumonia, Sexually Transmitted Disease Denies: Chronic Kidney Disease - Family History Family History: States: Unknown Family Hx - Home Medications Home Medications: Ambulatory Orders Medication Instructions Recorded No Known Home Med 05/10/17 - Allergies Allergies/Adverse Reactions: Allergies Allergy/AdvReac Type Severity Reaction Status Date / Time No Known Allergies Allergy Verified 01/24/18 15:23 Review of Systems ROS Statement: Except As Marked, All Systems Reviewed And Found Negative Physical Exam - Reviewed Nursing Documentation Reviewed: Yes Vital Signs Reviewed: Yes - Physical Exam Appears: Positive for: Well, Non-toxic, No Acute Distress Head Exam: Positive for: ATRAUMATIC, NORMAL INSPECTION, NORMOCEPHALIC Skin: Positive for: Normal Color, Warm, DRY Eye Exam: Positive for: EOMI, Normal appearance, PERRL ENT: Positive for: Normal ENT Inspection Neck: Positive for: Normal, Painless ROM Cardiovascular/Chest: Positive for: Regular Rate, Rhythm Respiratory: Positive for: CNT, Normal Breath Sounds Gastrointestinal/Abdominal: Positive for: Normal Exam, Soft Back: Positive for: Normal Inspection Extremity: Positive for: Normal ROM Neurologic/Psych: Positive for: Alert, Oriented - Laboratory Results Result Diagrams: 01/24/18 15:52 01/24/18 15:52 - ECG O2 Sat by Pulse Oximetry: 99 - Progress ED Course And Treament: PATIENT AROUSABLE BY VERBAL STIMULI. NS 1 LITER WIDE OPEN HEAD CT:NAD CXR: NAD CREATININE NOTED 4.1. LAST CREATININE 04/2017 NOTED 1.1 2ND LITER NS 250ML PER HOUR. D/W DR. WIGGINS ADMIT TELE OBS Disposition - Clinical Impression Clinical Impression: Renal insufficiency, Dehydration, Substance abuse - Patient ED Disposition Is Patient to be Admitted: Yes - Disposition Disposition Time: 17:55 Condition: FAIR - Pt Status Changed To: Hospital Disposition Of: Observation
[2018-01-24 16:03] LABS: BASO % 0.5 % (0.0-2.0); EOS # 0.1 K/uL (0.0-0.7); EOS % 1.4 % (0.0-4.0); HEMOGLOBIN 13.9 g/dL (12.0-18.0); LYMPH # 1.4 K/uL (1.0-4.3); MEAN CELL VOLUME 94.3 fl (80.0-94.0); MEAN CORPUSCULAR HEMOGLOBIN 30.6 pg (27.0-31.0); MEAN CORPUSCULAR HGB CONC 32.5 g/dL (33.0-37.0); MEAN PLATELET VOLUME 8.3 fl (7.2-11.7); MONO # 0.6 K/uL (0.0-0.8); MONO % 9.8 % (0.0-10.0); NEUT # 4.3 K/uL (1.8-7.0); NEUT % 67.3 % (50.0-75.0); NRBC % 0.1 % (0.0-0.0); RBC 4.54 Mil/uL (4.40-5.90); RED CELL DISTRIBUTION WIDTH 16.8 % (11.5-14.5); WHITE BLOOD COUNT 6.4 K/uL (4.8-10.8)
[2018-01-24 16:10] LABS: ALB/GLOB RATIO 1.1 (1.0-2.1); ALBUMIN 3.9 g/dL (3.5-5.0); ALT/SGPT 26 U/L (21-72); AST/SGOT 24 U/L (17-59); BLOOD UREA NITROGEN 36 mg/dl (9-20); CALCIUM 8.8 mg/dL (8.4-10.2); GFR NON-AFRICAN AMERICAN 14
--- NOTE | 2018-01-24 16:13 | RAD ---
Date of service: 01/24/2018 HISTORY: ROUTINE COMPARISON: 05/09/2017 FINDINGS: LUNGS: No active pulmonary disease. PLEURA: No significant pleural effusion identified, no pneumothorax apparent. CARDIOVASCULAR: No radiographic findings to suggest acute or significant cardiovascular disease. OSSEOUS STRUCTURES: No significant abnormalities. VISUALIZED UPPER ABDOMEN: Normal. OTHER FINDINGS: None. IMPRESSION: No active disease. No significant interval change compared to the prior examination(s).
--- NOTE | 2018-01-24 17:34 | CT ---
Date of service: 01/24/2018 PROCEDURE: CT HEAD WITHOUT CONTRAST. HISTORY: HEAD INJURY COMPARISON: None available. TECHNIQUE: Axial computed tomography images were obtained through the head/brain without intravenous contrast. Supplemental Coronal and Sagittal projections created and reviewed. Radiation dose: Total exam DLP = 930.55 mGy-cm. This CT exam was performed using one or more of the following dose reduction techniques: Automated exposure control, adjustment of the mA and/or kV according to patient size, and/or use of iterative reconstruction technique. FINDINGS: HEMORRHAGE: No intracranial hemorrhage. BRAIN: No mass effect or edema. No atrophy or chronic microvascular ischemic changes. VENTRICLES: Unremarkable. No hydrocephalus. CALVARIUM: Unremarkable. PARANASAL SINUSES: Unremarkable as visualized. No significant inflammatory changes. MASTOID AIR CELLS: Unremarkable as visualized. No inflammatory changes. OTHER FINDINGS: None. IMPRESSION: No acute intracranial abnormalities. No significant findings to account for the clinical presentation. No significant interval change compared to the prior examination(s).
[2018-01-24 18:54] VITALS: O2SAT 96
--- NOTE | 2018-01-25 00:47 | CP.PCM.PCO ---
Physician Communication Note - Physician Communication Note Physician Communication Note: paged by nurse, patient agitated, looking for money, wants to leave Assessment/Plan - Assessment and Plan (Free Text) Assessment: Patient seen and examined at bedside, in no acute distress, normal breathing rate and saturation. Alert, awake, oriented to person, place and time, cooperative with exam. Patient stated he wanted to leave to get his money. -discussed with patient reason for his admission -Ativan 0.5mg IV once ordered -patient reassured -patient cooperative, stayed in bed - Date & Time Date: 01/25/18 Time: 00:41
[2018-01-25 05:30] LABS: HEMOGLOBIN 12.8 g/dL (12.0-18.0); MEAN CELL VOLUME 95.1 fl (80.0-94.0); MEAN CORPUSCULAR HEMOGLOBIN 30.6 pg (27.0-31.0); MEAN CORPUSCULAR HGB CONC 32.1 g/dL (33.0-37.0); RBC 4.19 Mil/uL (4.40-5.90); RED CELL DISTRIBUTION WIDTH 17.4 % (11.5-14.5); WHITE BLOOD COUNT 4.8 K/uL (4.8-10.8)
[2018-01-25 05:52] LABS: ALB/GLOB RATIO 1.1 (1.0-2.1); ALBUMIN 3.1 g/dL (3.5-5.0)
[2018-01-25 05:53] LABS: T4 6.23 ug/dl (5.5-11.0)
[2018-01-25 08:18] VITALS: BP 111/67; PULSE 61; RESP 20; TEMP 97.7
[2018-01-25] MEDS ORDERED: Influenza Vaccine (5 YR UP)/PF 60 MCG/0.5 ML SYR IM ONE (10:00)
--- NOTE | 2018-01-25 10:52 | CARD ---
APPROVED REPORT Date of service: 01/24/2018 EKG Measurement Heart [id number] <Conclusion> Normal sinus rhythm with occasional premature atrial complexes Left axis deviation Right bundle branch block Abnormal ECG
[2018-01-25 15:05] LABS: SQUAMOUS EPITHIAL 1 /hpf (0-5); URINE BACTERIA RARE (<OCC); URINE BILIRUBIN NEGATIVE (NEGATIVE); URINE BLOOD NEGATIVE (NEGATIVE); URINE CLARITY CLOUDY (Clear); URINE COLOR YELLOW (YELLOW); URINE GLUCOSE (UA) NEG (Normal); URINE LEUKOCYTE ESTERASE NEG Leu/uL (Negative); URINE PROTEIN 30 mg/dL (NEGATIVE); URINE UROBILINOGEN 0.2-1.0 mg/dL (0.2-1.0)
[2018-01-25 15:31] LABS: BARBITURATES, UR NEGATIVE (NEGATIVE); BENZODIAZEPINES, UR POSITIVE (NEGATIVE); OPIATES, UR POSITIVE (NEGATIVE); PHENCYCLIDINE, UR NEGATIVE (NEGATIVE)
== END 2018-01-25 09:35 | disposition left against medical advice (07) ==
LOC: H.ER 15:20 → H.ERHOLD 17:54 → H.TEL 21:33
PROVIDERS: ADMIT Internal Medicine Pulmonary Disease; ATTEND Internal Medicine Pulmonary Disease
DX: E86.0 Dehydration (principal); J43.9 Emphysema, unspecified; N28.9 Disorder of kidney and ureter, unspecified; D64.9 Anemia, unspecified; Z87.01 Personal history of pneumonia (recurrent); F11.10 Opioid abuse, uncomplicated; Z21 Asymptomatic human immunodeficiency virus [HIV] infection status
CPT/HCPCS: 36415; 70450; 71045; 80053; 80061; 81003; 83735; 83970; 84100; 84436; 84443; 84484; 85025; 85027; 86360; 87536; 93005; 99285; G0378; G0480; J2060; J7030

== ENCOUNTER 2018-01-25 20:54 | Emergency (ER) | payer MEDICARE ==
[2018-01-25 20:54] VITALS: BMI 20.7
[2018-01-25] MEDS ORDERED: Multivitamin (MVI) 10 ML, Thiamine 100 MG, Folic Acid 1 MG in Dextrose 5%/0.45% NS 1,00... IV ONE (21:20)
[2018-01-25] MEDS ORDERED: Sodium Chloride 0.9% 1,000 ML IV STA (21:56)
[2018-01-25 22:56] LABS: BASO % 0.6 % (0.0-2.0); EOS # 0.2 K/uL (0.0-0.7); EOS % 3.8 % (0.0-4.0); HEMOGLOBIN 12.7 g/dL (12.0-18.0); LYMPH # 1.4 K/uL (1.0-4.3); LYMPH % 30.8 % (20.0-40.0); MEAN CELL VOLUME 94.6 fl (80.0-94.0); MEAN CORPUSCULAR HEMOGLOBIN 31.1 pg (27.0-31.0); MEAN CORPUSCULAR HGB CONC 32.8 g/dL (33.0-37.0); MEAN PLATELET VOLUME 8.9 fl (7.2-11.7); MONO # 0.4 K/uL (0.0-0.8); MONO % 8.9 % (0.0-10.0); NEUT # 2.6 K/uL (1.8-7.0); NEUT % 55.9 % (50.0-75.0); RBC 4.07 Mil/uL (4.40-5.90); RED CELL DISTRIBUTION WIDTH 16.7 % (11.5-14.5); WHITE BLOOD COUNT 4.7 K/uL (4.8-10.8)
[2018-01-25 23:15] LABS: BLOOD UREA NITROGEN 23 mg/dl (9-20); CALCIUM 8.5 mg/dL (8.4-10.2); GFR NON-AFRICAN AMERICAN 50
--- NOTE | 2018-01-26 00:48 | ED PDOC ---
Syncope/Near Syncope/Dizziness Time Seen by Provider: 01/25/18 21:05 Chief Complaint (Nursing): Dizziness/Lightheaded Chief Complaint (Provider): Dizziness/Lightheaded History Per: Patient History/Exam Limitations: no limitations Onset/Duration Of Symptoms: Hrs Current Symptoms Are (Timing): Still Present Additional Complaint(s): 72 y/o male with a PMHx of HIV and heroin abuse presents to the ED for evaluation of dizziness. Patient reports of having done a bag of heroin when he felt like he was walking with dyequilibrium. Patient denies lightheadedness, passing out, room-spinning dizziness, chest pain and shortness of breath. Patient states he was last here in the ER yesterday and left the hospital but is unsure why. Patient additionally denies other drug or alcohol use. PMD: Dr. Cain Past Medical History Reviewed: Historical Data, Nursing Documentation, Vital Signs Vital Signs: Last Vital Signs Temp 98.6 F 01/25/18 20:57 Pulse 77 01/25/18 20:57 Resp 16 01/25/18 20:57 BP 116/58 L 01/25/18 20:57 Pulse Ox 97 01/25/18 20:57 - Medical History PMH: Anemia, Asthma, COPD, Emphysema, HIV, HTN, Hypercholesterolemia, Pneumonia, Seizures, Sexually Transmitted Disease Denies: Chronic Kidney Disease - Surgical History Surgical History: No Surg Hx - Family History Family History: States: Unknown Family Hx - Social History Drugs: Other (Heroin) - Home Medications Home Medications: Ambulatory Orders Medication Instructions Recorded Unobtainable 01/24/18 - Allergies Allergies/Adverse Reactions: Allergies Allergy/AdvReac Type Severity Reaction Status Date / Time No Known Allergies Allergy Verified 01/25/18 20:57 Review of Systems ROS Statement: Except As Marked, All Systems Reviewed And Found Negative Cardiovascular: Negative for: Chest Pain Respiratory: Negative for: Shortness of Breath Neurological: Positive for: Dizziness Physical Exam - Reviewed Nursing Documentation Reviewed: Yes Vital Signs Reviewed: Yes - Physical Exam Appears: Negative for: Well (cachexia) Head Exam: Positive for: ATRAUMATIC, NORMOCEPHALIC Skin: Positive for: Normal Color, Warm, Dry Eye Exam: Positive for: Normal appearance, EOMI, PERRL Neck: Positive for: Normal, Painless ROM Cardiovascular/Chest: Positive for: Regular Rate, Rhythm. Negative for: Murmur Respiratory: Positive for: Normal Breath Sounds. Negative for: Respiratory Distress Gastrointestinal/Abdominal: Positive for: Normal Exam, Soft. Negative for: Tenderness Back: Positive for: Normal Inspection. Negative for: L CVA Tenderness, R CVA Tenderness Extremity: Positive for: Normal ROM. Negative for: Pedal Edema, Deformity Neurologic/Psych: Positive for: Alert, motor vehicle technician II-XII (intact), Oriented, Cerebellar Tests (normal), Gait (steady). Negative for: Motor/Sensory Deficits - Laboratory Results Result Diagrams: 01/25/18 10:44 01/25/18 10:44 - ECG O2 Sat by Pulse Oximetry: 97 (RA) Pulse Ox Interpretation: Normal Medical Decision Making Medical Decision Making: Time: 2119 A/P: 72 y/o male presenting with dizziness after heroin use -- Patient currently well with normal vitals -- Patient here for Acute Renal Failure yesterday, will hydrate and check labs. -- Urine Drug Screen -- Urinalysis -- Sodium Chloride IV 1000 mls/hr -- Dextrose 5%/0.45% NS 1000 ml MVI Inj 10 ml Vitamin B1 Inj 100 mg Folic Acid 1 mg IV 250 mls/hr -- Alcohol Serum -- BMP -- Magnesium -- Phosphorus -- CBC with differentials 600 --Patient walked around ER without difficulty --UTox positive for benzos and opiates --Advised abstension from drug abuse from now forward --Vitals stable, well appearing upon discharge ___ Scribe Attestation: Documented by Hardik Gregorio, acting as a scribe for Luis Fernando Alcala MD. Provider Scribe Attestation: All medical record entries made by the Scribe were at my direction and personally dictated by me. I have reviewed the chart and agree that the record accurately reflects my personal performance of the history, physical exam, medical decision making, and the department course for this patient. I have also personally directed, reviewed, and agree with the discharge instructions and disposition. Disposition - Clinical Impression Clinical Impression: Polysubstance abuse - Patient ED Disposition Is Patient to be Admitted: No - Disposition Referrals: Community Mental Health [Outside] Disposition: Routine/Home Disposition Time: 05:46 Condition: STABLE Instructions: Polysubstance Abuse (DC) Forms: [employer] (Mexican)
[2018-01-26] MEDS ORDERED: Albuterol-Ipratrop 3 mg / 0.5 (3 ml) UD INH STA (01:24)
[2018-01-26 02:12] LABS: SQUAMOUS EPITHIAL 1 /hpf (0-5); URINE BILIRUBIN NEGATIVE (NEGATIVE); URINE BLOOD NEGATIVE (NEGATIVE); URINE CLARITY CLEAR (Clear); URINE COLOR YELLOW (YELLOW); URINE GLUCOSE (UA) NEG (Normal); URINE LEUKOCYTE ESTERASE NEG Leu/uL (Negative); URINE PROTEIN 30 mg/dL (NEGATIVE); URINE UROBILINOGEN 0.2-1.0 mg/dL (0.2-1.0)
[2018-01-26 02:26] LABS: BARBITURATES, UR NEGATIVE (NEGATIVE); BENZODIAZEPINES, UR POSITIVE (NEGATIVE); OPIATES, UR POSITIVE (NEGATIVE); PHENCYCLIDINE, UR NEGATIVE (NEGATIVE)
[2018-01-26 07:24] VITALS: BP 159/89; PULSE 78; RESP 17; TEMP 97.8; O2SAT 95
== END 2018-01-26 07:45 | disposition home or self-care (01) ==
LOC: H.ER 20:54
DX: F11.10 Opioid abuse, uncomplicated (principal); B20 Human immunodeficiency virus [HIV] disease; E78.00 Pure hypercholesterolemia, unspecified; I10 Essential (primary) hypertension; J43.9 Emphysema, unspecified; N17.9 Acute kidney failure, unspecified
CPT/HCPCS: 36415; 80053; 80061; 81003; 83735; 83970; 84100; 84436; 84443; 85025; 85027; 86360; 87536; 94150; 94640; 96360; 99284; G0378; G0480; J2060; J7030